=== PATIENT | male | born 1990 | race African-American/Black ===

== ENCOUNTER 2018-07-20 19:39 | Emergency (ER) | payer OTHER ==
[~2018-07-20] VITALS: Ht 175.3 cm; Wt 68.5 kg
== END 2018-07-20 20:43 | disposition home or self-care (01) ==
LOC: ER 19:39
DX: L02.31 Cutaneous abscess of buttock (principal); B95.61 Methicillin susceptible Staphylococcus aureus infection as the cause of diseases classified elsewhere; B95.1 Streptococcus, group B, as the cause of diseases classified elsewhere; B96.89 Other specified bacterial agents as the cause of diseases classified elsewhere

== ENCOUNTER 2018-09-20 20:50 | Emergency (ER) | payer OTHER ==
[~2018-09-20] VITALS: Ht 175.3 cm; Wt 72.6 kg
[2018-09-21] MEDS ORDERED: CLINDAMYCIN HC300 MG PO (01:04)
[2018-09-21] MEDS ORDERED: INTESTINEX680 M1 PO (01:04)
[2018-09-21] MEDS ORDERED: KETO10TA2 PO (01:04)
== END 2018-09-21 01:33 | disposition home or self-care (01) ==
LOC: ER 20:50
DX: L02.214 Cutaneous abscess of groin (principal)